=== PATIENT | male | born 1955 | race Caucasian/White ===

== ENCOUNTER 2018-01-18 20:24 | Emergency (ER) | payer OTHER ==
[~2018-01-18] VITALS: Ht 185.4 cm; Wt 98.9 kg
[2018-01-18 20:38] VITALS: Ht 185.4 cm; Wt 98.9 kg
[2018-01-18 21:24] LABS: BASOPHIL % 0.4 % (0-2); PLATELET COUNT 170 x10^3mcL (130-400); RED CELL DISTRIBUTION WIDTH 14.2 % (11.5-14.5)
[2018-01-18 23:11] VITALS: BP 129/88
== END 2018-01-18 23:11 | disposition home or self-care (01) ==
LOC: ED 20:24
PROVIDERS: Emergency Medicine
DX: S50.312A Abrasion of left elbow, initial encounter (principal); S09.90XA Unspecified injury of head, initial encounter; I63.9 Cerebral infarction, unspecified; I10 Essential (primary) hypertension; I21.9 Acute myocardial infarction, unspecified; I48.91 Unspecified atrial fibrillation; E78.00 Pure hypercholesterolemia, unspecified; Z88.5 Allergy status to narcotic agent; W18.39XA Other fall on same level, initial encounter; Y93.89 Activity, other specified; Y92.89 Other specified places as the place of occurrence of the external cause; Y99.8 Other external cause status
CPT/HCPCS: 36415